=== PATIENT | male | born 1985 | race African-American/Black ===

== ENCOUNTER 2023-10-13 14:36 | Emergency (ER) | payer SELFPAY | END 2023-10-13 14:56 | disposition left against medical advice (07) | LOC: ER 14:36 → EDBD 14:36 → ER 14:56 | DX: F10.90 Alcohol use, unspecified, uncomplicated (principal); Z53.21 Procedure and treatment not carried out due to patient leaving prior to being seen by health care provider; Y90.0 Blood alcohol level of less than 20 mg/100 ml ==